=== PATIENT | female | born 1960 | race Caucasian/White ===

== ENCOUNTER 2024-03-05 19:32 | Emergency (ER) | payer BC ==
[~2024-03-05] VITALS: Ht 162.6 cm; Wt 94.4 kg
[2024-03-05 19:40] VITALS: BP 203/105; PULSE 74; RESP 16; TEMP 97.8; O2SAT 96
[2024-03-05] MEDS: LIDOcaine 1% W/epiNEPHrine 1:100,000 20ml vial SQ STA (21:32)
[2024-03-05] MEDS ORDERED: DOXY-1 PO (22:02)
[2024-03-05] MEDS: DOXYCYCLINE 100MG CAPSULE PO STA (22:30)
== END 2024-03-05 22:33 | disposition home or self-care (01) ==
LOC: ER 19:34
DX: S51.812A Laceration without foreign body of left forearm, initial encounter (principal); Z88.1 Allergy status to other antibiotic agents; W54.0XXA Bitten by dog, initial encounter; Y93.89 Activity, other specified; Y92.89 Other specified places as the place of occurrence of the external cause; Y99.8 Other external cause status
CPT/HCPCS: 12002; 99283; A6258; A6449